=== PATIENT | female | born 1950 | race Caucasian/White ===

== ENCOUNTER 2023-07-31 07:26 | Outpatient (REF) | payer MEDICARE, OTHER, SELFPAY | END 2023-07-31 07:27 | disposition home or self-care (01) | LOC: HO.MAMMO 07:26 | PROVIDERS: Visit Provider Nurse Practitioner Family | DX: Z12.31 Encounter for screening mammogram for malignant neoplasm of breast (principal) | CPT/HCPCS: 77063; 77067 ==

== ENCOUNTER → 2023-07-31 07:45 | Outpatient (BNV) | payer MEDICARE, OTHER, SELFPAY | PROVIDERS: Visit Provider Radiology Diagnostic Radiology | DX: Z12.31 Encounter for screening mammogram for malignant neoplasm of breast (principal) | CPT/HCPCS: 77063; 77067 ==

== ENCOUNTER 2024-06-25 12:48 | Outpatient (REF) | payer MEDICARE, OTHER, SELFPAY ==
--- NOTE | ~2024-06-25 | MM_ITS ---
EXAMINATION: MM DIAGNOSTIC DIGITAL BREAST TOMOSYNTHESIS, BILATERAL CLINICAL INFORMATION: Patient recommended for call back mammography 07/31/2023, did not return for evaluation of left breast calcifications until 06/25/2024. Due for bilateral yearly. COMPARISON: Mammography: 07/31/2023, 02/15/2016, 06/15/2014, 09/26/2013. TECHNIQUE: Digital breast tomosynthesis is performed in both the craniocaudal and mediolateral oblique views along with computer-aided detection (CAD). Synthesized 2D images are generated from the tomosynthesis. In addition to standard views, 2-D spot magnification views left breast were obtained in the CC and ML projections. A full field right cleavage view was also obtained. FINDINGS: There are scattered areas of fibroglandular density (ACR BI-RADS breast composition Category b). Calcifications in the retroareolar central left breast are loosely grouped, largely somewhat coarse without significant pleomorphism, branching, or casting forms. Rather they have an appearance more typical for early secretory calcifications and/or vascular calcifications. They appear to have minimally increased in number since 2016, with no definite aggressive changes. These are probably benign calcifications, and six-month follow-up recommended left breast diagnostic mammogram. Otherwise, a stable lymph node is present in the upper outer quadrant right breast. There are no suspicious masses, other suspicious grouped calcifications, or areas of architectural distortion in either breast. The parenchymal pattern is stable from prior exams. There is no skin or axillary abnormality. MM/MM tomosynthesis diagnostic BI IMPRESSION: There are no findings suspicious for malignancy in either breast. Probably benign calcifications in the retroareolar left breast, for which six-month follow-up diagnostic left breast mammogram is recommended to ensure stability. (Standard magnification views). ASSESSMENT: BI-RADS BI-RADS 3 - Probably benign finding(s) - 6 month follow-up suggested RECOMMENDATION: 6 Month F/U Results were provided to the patient at time of visit by the technologist. This patient's information was entered into a reminder system with a target due date for their next mammogram. Electronically signed by: David Walter MD 06/25/2024 02:16 PM EDT
== END 2024-06-25 12:49 | disposition home or self-care (01) ==
LOC: HO.MAMMO 12:48
PROVIDERS: PCP Nurse Practitioner Family; Visit Provider Nurse Practitioner Family
DX: R92.1 Mammographic calcification found on diagnostic imaging of breast (principal)
CPT/HCPCS: 77062; 77066

== ENCOUNTER → 2024-06-25 13:00 | Outpatient (BNV) | payer MEDICARE, OTHER, SELFPAY | PROVIDERS: PCP Nurse Practitioner Family; Visit Provider Radiology Diagnostic Radiology | DX: R92.1 Mammographic calcification found on diagnostic imaging of breast (principal) | CPT/HCPCS: 77066; G0279 ==

== ENCOUNTER 2025-02-24 10:51 | Outpatient (REF) | payer MEDICARE, OTHER, SELFPAY ==
--- NOTE | ~2025-02-24 | MM_ITS ---
EXAMINATION: MM DIAGNOSTIC DIGITAL MAMMOGRAPHY, LEFT CLINICAL INFORMATION: 6 month follow-up left breast calcifications. COMPARISON: Mammography: [facility] on PACS. TECHNIQUE: Digital mammography is performed in craniocaudal and mediolateral oblique views along with computer-aided detection (CAD). FINDINGS: There are scattered areas of fibroglandular density (ACR BI-RADS breast composition Category b). Scattered probable secretory and coarse calcifications in the upper central left breast are not significantly changed from prior magnification views 6 months ago. No suspicious masses or other abnormal findings. Results are provided to the patient at time of visit by the technologist. MM/MM diagnostic mammo unilat LT IMPRESSION: Possibly benign coarse calcifications and secretory calcifications in the central upper left breast which are scattered and unchanged from prior magnification views. Recommend six-month follow-up with magnification views when the patient is due for bilateral mammography. ASSESSMENT: BI-RADS BI-RADS 3 - Probably benign finding(s) - 6 month follow-up suggested RECOMMENDATION: 6 Month F/U This patient's information was entered into a reminder system with a target due date for their next mammogram. Electronically signed by: Radha Rubi DO 02/24/2025 12:05 PM EDT
--- OUTSIDE RECORDS SUMMARY | 2025-02-24 13:01 | XMS_ITS | Clinical Summary ---
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 Role Phone Unavailable Primary Care Provider Unavailabl e Allergies No known active allergies Social History Tobacco Use Types Packs/Day Years Used Date Smoking Tobacco: Never Assessed Comments No Sex and Gender Information Value Date Recorded Sex Assigned at Not on file Legal Sex Female 6:53 PM EST Gender Identity Not on file Sexual Orientation Not on file Last Filed Vital Signs Vital Sign Reading Time Taken Comments Blood Pressure 129/68 04/16/2019 11:12 AM EDT Pulse 77 04/16/2019 11:12 AM EDT Temperature 37.2 ??C (99 ??F) 04/16/2019 11:12 AM EDT Respiratory Rate 16 04/16/2019 11:12 AM EDT Oxygen Saturation 99% 04/16/2019 11:12 AM EDT Inhaled Oxygen Concentration - - Weight 72.1 kg (159 lb) 04/16/2019 11:12 AM EDT Height 162.6 cm (5' 4 ) 04/16/2019 11:12 AM EDT Body Mass Index 27.29 04/16/2019 11:12 AM EDT Plan of Treatment Health Maintenance Due Date Last Done Comments Hepatitis C Virus Screening 1950 DTaP/Tdap/Td Vaccines (1 - Tdap) 1970 Mammogram 1991 Colonoscopy 1996 Pneumococcal Vaccines 50+ (1 of 1 - PCV) 2001 Zoster (Shingles) Vaccine (1 of 2) 2001 DXA Bone Density (Females,Ag es 65 and older) 2016 Influenza Vaccine 06/04/2024 COVID-19 Vaccine ( - 2023-2 5 season) 2024 RSV Vaccine 60 years and old er and Patients (1 - 1-dose 75+ series) 2026 Hepatitis B Vaccines Aged Out No long er eligible based on patient's age to complete this topic Insurance MEDICARE PART A & B [facility] [employer]
== END 2025-02-24 10:52 | disposition home or self-care (01) ==
LOC: HO.MAMMO 10:51
PROVIDERS: PCP Nurse Practitioner Family; Visit Provider Nurse Practitioner Family
DX: R92.1 Mammographic calcification found on diagnostic imaging of breast (principal)
CPT/HCPCS: 77062; 77065

== ENCOUNTER → 2025-02-24 11:00 | Outpatient (BNV) | payer MEDICARE, OTHER, SELFPAY | PROVIDERS: PCP Nurse Practitioner Family; Visit Provider Internal Medicine | DX: R92.1 Mammographic calcification found on diagnostic imaging of breast (principal) | CPT/HCPCS: 77065 ==

== ENCOUNTER 2025-08-27 10:21 | Outpatient (REF) | payer MEDICARE, OTHER, SELFPAY ==
--- NOTE | ~2025-08-27 | US_ITS ---
EXAMINATION: MM DIAGNOSTIC DIGITAL BREAST TOMOSYNTHESIS, BILATERAL CLINICAL INFORMATION: 1 year follow-up for grouped calcifications in the retroareolar region of the left breast. COMPARISON: Mammography: Comparison is made with relevant prior exams. TECHNIQUE: Digital breast mammography with tomosynthesis is performed in both the craniocaudal and mediolateral oblique views along with computer-aided detection (CAD). FINDINGS: There are scattered areas of fibroglandular density. Left: Scattered probable secretory and coarse calcifications in the upper central left breast are not significantly changed from prior magnification views 12 months. No suspicious masses or other abnormal findings. Right: Oval mass which localizes superficially to the skin in the upper outer right breast low axilla increased from prior imaging. No suspicious calcifications or other abnormal findings. Targeted color Doppler ultrasound scanning in the right upper outer breast right low axilla demonstrates an intradermal hypoechoic cystic and solid mass consistent with a sebaceous cyst measuring 9 x 8 x 7 mm. There is no internal vascular flow. Results are provided to the patient at time of visit by the technologist. US/US Breast RT Limited Mamm Only IMPRESSION: Right: Intradermal sebaceous cyst in the right axilla. Benign. Attention on follow-up diagnostic bilateral exam in one year to this area. Left: Grouped calcifications in the retroareolar region of the left breast not significantly changed from prior magnification views dating back for 12 months. Recommend 12 month diagnostic follow up to demonstrate 2 years of stability. ASSESSMENT: BI-RADS Category 3: Probably benign RECOMMENDATION: 12 month diagnostic follow up This patient's information was entered into a reminder system with a target due date for their next mammogram. Electronically signed by: Radha Rubi DO 08/27/2025 01:19 PM EDT
--- OUTSIDE RECORDS SUMMARY | 2025-08-27 11:48 | XMS_ITS | Clinical Summary ---
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 Name Role Phone Unavailable Primary Care Provider [...] 77 04/16/2019 11:12 AM EDT Temperature 37.2 C (99 F) 04/16/2019 11:12 AM EDT Respiratory Rate 16 04/16/2019 11:12 AM EDT Oxygen Saturation 99% 04/16/2019 11:12 AM EDT Inhaled Oxygen Concentration - - Weight 72.1 kg (159 lb) 04/16/2019 11:12 AM EDT Height 162.6 cm (5' 4 ) 04/16/2019 11:12 AM EDT Body Mass Index 27.29 04/16/2019 11:12 AM EDT Plan of Treatment Health Maintenance Due Date Last Done Comments Advance Care Planning 1950 Hepatitis C Virus Screening 1950 DTaP/Tdap/Td Vaccines (1 - Tdap) 1970 Mammogram 1991 Colonoscopy 1996 Pneumococcal Vaccines 50+ (1 of 1 - PCV) 2001 Zoster (Shingles) Vaccine (1 of 2) 2001 DXA Bone Density (Females,Ag es 65 and older) 2016 Influenza Vaccine 06/04/2025 COVID-19 Vaccine ( - 2023-2 5 season) 2025 RSV Vaccine 50 years and old er and Patients (1 - 1-dose 75+ series) 2026 Hepatitis B Vaccines Aged Out No long er eligible based on patient's age to complete this topic Insurance MEDICARE PART A & B FOR [id number]
== END 2025-08-27 10:22 | disposition home or self-care (01) ==
LOC: HO.MAMMO 10:21
PROVIDERS: PCP Nurse Practitioner Family; Visit Provider Nurse Practitioner Family
DX: R92.1 Mammographic calcification found on diagnostic imaging of breast (principal)
CPT/HCPCS: 76642; 77062; 77066

== ENCOUNTER → 2025-08-27 10:30 | Outpatient (BNV) | payer MEDICARE, OTHER, SELFPAY | PROVIDERS: PCP Nurse Practitioner Family; Visit Provider Internal Medicine | DX: R92.2 Inconclusive mammogram (principal) | CPT/HCPCS: 76642; 77066; G0279 ==